=== PATIENT | male | born 1945 | race Caucasian/White ===

== ENCOUNTER 2017-03-29 11:39 | Emergency (ER) | payer OTHER, MEDICAID ==
[~2017-03-29] VITALS: Ht 188 cm; Wt 99.8 kg
[2017-03-29 11:39] VITALS: BP_SYST 176
[~2017-03-29 11:39] MED LIST: ESOM40CA PO; FURO40TA5 PO; LACT10SO66 PO; LYR50 PO; METO-290 PO; MORP20CA19 PO; RIFA550T5 PO; SPIR50TA26 PO; TRAM50TA92 PO
[2017-03-29] MEDS ORDERED: IBUPROFEN 800 MG TABLET PO ONE (12:00)
[2017-03-29] MEDS ORDERED: HYDROcodone/ACETAMIN 10-325 MG TAB PO ONE (12:00)
[2017-03-29 12:12] LABS: BASOPHILS % (AUTO) 0.6 % (0.0-2.0); EOSINOPHILS % (AUTO) 0.7 % (0.0-4.0); HEMATOCRIT 38.1 % (36-54); HEMOGLOBIN 12.6 g/dL (14.0-18.0); LYMPHOCYTES # (AUTO) 1.7 K/uL (1.0-5.5); LYMPHOCYTES % (AUTO) 23.6 % (20.5-51.5); MEAN CORPUSCULAR HEMOGLOBIN 30 pg (27-31); MEAN CORPUSCULAR HGB CONC 33 % (32-36); MEAN CORPUSCULAR VOLUME 90 fL (79.0-98.0); MONOCYTES # (AUTO) 0.4 K/uL (0.0-1.0); MONOCYTES % (AUTO) 5.1 % (1.7-9.3); PLATELET COUNT (AUTO) 182 K/uL (130-430); RED BLOOD CELL COUNT(AUTO) 4.23 MIL/uL (4.2-6.2); RED CELL DISTRIBUTION WIDTH 14.7 % (9.0-15.0); WHITE BLOOD COUNT (AUTO) 7.1 K/uL (4.8-10.8)
[2017-03-29 12:23] LABS: ANION GAP 8 (5-15); CHLORIDE 106 mmol/L (98-107); CREATININE 1.02 mg/dL (0.55-1.30); GLUCOSE 93 mg/dL (70-99); SODIUM SERUM 139 mmol/L (136-145); UREA NITROGEN, BLOOD 25 mg/dL (8-21)
[2017-03-29 12:26] LABS: INR 1.1 (0.80-1.20)
[2017-03-29 12:29] LABS: ALANINE AMINOTRANSFERASE 21 U/L (12-78); ALBUMIN 4.3 g/dL (3.4-4.8); ASPARTATE AMINOTRANSFERASE 17 U/L (10-37); TOTAL BILIRUBIN 0.6 mg/dL (0.0-1.0)
[2017-03-29] MEDS ORDERED: MORPHINE SULFATE 10 MG/ML VIAL IM ONE (12:45)
[2017-03-29] MEDS ORDERED: ONDANSETRON 4 MG ODT TAB PO ONE (12:45)
[2017-03-29 15:05] VITALS: BP_SYST 170
== END 2017-03-29 15:05 | disposition home or self-care (01) ==
LOC: SED 11:39
DX: E11.40 Type 2 diabetes mellitus with diabetic neuropathy, unspecified (principal); R07.9 Chest pain, unspecified; R20.0 Anesthesia of skin; I10 Essential (primary) hypertension; K74.60 Unspecified cirrhosis of liver; K75.9 Inflammatory liver disease, unspecified; Z88.1 Allergy status to other antibiotic agents; Z79.899 Other long term (current) drug therapy
CPT/HCPCS: 36415; 70450; 80053; 85025; 85610; 85730; 93971; 96372; 99285; J2270; Q0162

== ENCOUNTER 2018-05-16 15:54 | Inpatient (IN) | payer OTHER, MEDICAID ==
[~2018-05-16] VITALS: Ht 188 cm; Wt 98.0 kg
[~2018-05-16 15:54] MED LIST changes: +AMOX-426 PO; -ESOM40CA PO; +FURO-149 PO; -FURO40TA5 PO; -LYR50 PO; -METO-290 PO; -MORP20CA19 PO; -RIFA550T5 PO; -SPIR50TA26 PO; -TRAM50TA92 PO
[2018-05-16 16:28] VITALS: BP_SYST 126
[2018-05-16] MEDS ORDERED: NS 1000 ML IV.SOLN IV ONE (18:15)
[2018-05-16 18:20] LABS: ANION GAP 9 (5-15); CALCIUM 8.7 mg/dL (8.4-11.0); CHLORIDE 102 mmol/L (98-107); GLUCOSE 139 mg/dL (70-99); POTASSIUM 3.4 mmol/L (3.5-5.1); SODIUM SERUM 137 mmol/L (136-145); UREA NITROGEN, BLOOD 41 mg/dL (8-21)
[2018-05-16 18:24] LABS: WHITE BLOOD COUNT (AUTO) 4.3 K/uL (4.8-10.8)
[2018-05-16 18:25] LABS: ALANINE AMINOTRANSFERASE 43 U/L (12-78); ALBUMIN 3.5 g/dL (3.4-4.8); ASPARTATE AMINOTRANSFERASE 45 U/L (10-37); BASOPHILS % (AUTO) 0.6 % (0.0-2.0); EOSINOPHILS % (AUTO) 0.2 % (0.0-4.0); HEMATOCRIT 35.5 % (36-54); HEMOGLOBIN 12.1 g/dL (14.0-18.0); LYMPHOCYTES % (AUTO) 22.7 % (20.5-51.5); MEAN CORPUSCULAR HEMOGLOBIN 30 pg (27-31); MEAN CORPUSCULAR HGB CONC 34 % (32-36); MEAN CORPUSCULAR VOLUME 89 fL (79.0-98.0); MONOCYTES % (AUTO) 11.2 % (1.7-9.3); NEUTROPHILS % (AUTO) 65.3 % (40.0-70.0); PLATELET COUNT (AUTO) 105 K/uL (130-430); RED BLOOD CELL COUNT(AUTO) 3.99 MIL/uL (4.2-6.2); RED CELL DISTRIBUTION WIDTH 14.1 % (9.0-15.0); TOTAL BILIRUBIN 0.7 mg/dL (0.0-1.0)
[2018-05-16 18:26] LABS: MONOCYTES # (AUTO) 0.5 K/uL (0.0-1.0); NEUTROPHILS # (AUTO) 2.8 K/uL (1.8-7.7)
[2018-05-16] MEDS ORDERED: CLINDAMYCIN 600 mg/50mL D5W 50 ML IV ONE (18:30)
[2018-05-16] MEDS ORDERED: MORPHINE 4 MG/ML INJ. SYRINGE IVP ONE (18:30)
[2018-05-16 19:10] LABS: PROTHROMBIN TIME 10.3 SECS (9.5-12.5)
[2018-05-16 19:43] LABS: BILIRUBIN,URINE NEGATIVE (NEGATIVE); BLOOD, URINE NEGATIVE (NEGATIVE); CLARITY/URINE SL CLOUDY (CLEAR); COLOR,URINE YELLOW (YELLOW); GLUCOSE,URINE NEGATIVE (NEGATIVE); KETONES,URINE NEGATIVE (NEGATIVE); LEUKOCYTE ESTERASE ,URINE 2+ (NEGATIVE); NITRITE, URINE NEGATIVE (NEGATIVE); PROTEIN URINE NEGATIVE (NEGATIVE); UROBILINOGEN,URINE 0.2 (0.2-1.0)
[2018-05-16 19:55] LABS: BACTERIA,URINE MANY /HPF (None Seen); RBC,URINE 0-3 /HPF (0-3); WBC,URINE 80-100 /HPF (0-3)
[2018-05-16 19:56] LABS: MUCUS,URINE None Seen /LPF (None Seen)
[2018-05-16] MEDS ORDERED: VANCOMYCIN HCL 1,000 MG in NS 250 ML IV ONE (20:00)
[2018-05-16] MEDS ORDERED: VANCOMYCIN HCL 1000 MG/VIAL IV ONE (20:15)
[2018-05-16] MEDS ORDERED: ACETAMINOPHEN 325 MG TABLET PO PRN (21:00)
[2018-05-16] MEDS ORDERED: ONDANSETRON HCL 4 MG/2 ML VIAL IVP PRN (21:00)
[2018-05-16] MEDS ORDERED: METOCLOPRAMIDE HCL 10 MG/2 ML VIAL IVP PRN (21:00)
[2018-05-16] MEDS ORDERED: MORPHINE 4 MG/ML INJ. SYRINGE IVP PRN (21:00)
[2018-05-16] MEDS ORDERED: DEXTROSE 50% JECT 50 ML DISP.SYRIN IVP PRN (21:00)
[2018-05-16 21:01] VITALS: BP_SYST 158
[2018-05-16] MEDS: MORPHINE 4 MG/ML INJ. SYRINGE IVP PRN (22:33)
[2018-05-16] MEDS: NACL 0.9% 1,000 ML IV SCH (22:37)
[2018-05-16] MEDS: INSULIN REGULAR, HUMAN 100 UNITS/ML, 10 ML VIAL (novoLIN R) SUBCUT PRN (22:55)
[2018-05-17] MEDS: MORPHINE 4 MG/ML INJ. SYRINGE IVP PRN ×5 (02:27→22:32)
[2018-05-17 08:00] VITALS: BP_SYST 147
[2018-05-17 08:11] LABS: BASOPHILS % (AUTO) 0.4 % (0.0-2.0); EOSINOPHILS % (AUTO) 0.7 % (0.0-4.0); HEMATOCRIT 36.7 % (36-54); HEMOGLOBIN 12.3 g/dL (14.0-18.0); LYMPHOCYTES # (AUTO) 0.8 K/uL (1.0-5.5); LYMPHOCYTES % (AUTO) 24.9 % (20.5-51.5); MEAN CORPUSCULAR HEMOGLOBIN 30 pg (27-31); MEAN CORPUSCULAR HGB CONC 34 % (32-36); MEAN CORPUSCULAR VOLUME 90 fL (79.0-98.0); MONOCYTES % (AUTO) 11.4 % (1.7-9.3); NEUTROPHILS # (AUTO) 2.1 K/uL (1.8-7.7); NEUTROPHILS % (AUTO) 62.6 % (40.0-70.0); PLATELET COUNT (AUTO) 110 K/uL (130-430); RED BLOOD CELL COUNT(AUTO) 4.09 MIL/uL (4.2-6.2); WHITE BLOOD COUNT (AUTO) 3.3 K/uL (4.8-10.8)
[2018-05-17 08:12] LABS: MONOCYTES # (AUTO) 0.4 K/uL (0.0-1.0)
[2018-05-17 08:34] LABS: ALANINE AMINOTRANSFERASE 40 U/L (12-78); ALBUMIN 3.4 g/dL (3.4-4.8); ANION GAP 7 (5-15); ASPARTATE AMINOTRANSFERASE 37 U/L (10-37); CALCIUM 8.5 mg/dL (8.4-11.0); CHLORIDE 106 mmol/L (98-107); CREATININE 1.41 mg/dL (0.55-1.30); GLUCOSE 120 mg/dL (70-99); POTASSIUM 3.3 mmol/L (3.5-5.1); SODIUM SERUM 138 mmol/L (136-145); UREA NITROGEN, BLOOD 34 mg/dL (8-21)
[2018-05-17] MEDS: LEVOFLOXACIN 500 MG/D5W 100 ML IV SCH (09:53)
[2018-05-17] MEDS: VANCOMYCIN HCL 1,750 MG in NS 500 ML IV SCH (11:02)
[2018-05-17] MEDS: INSULIN REGULAR, HUMAN 100 UNITS/ML, 10 ML VIAL (novoLIN R) SUBCUT PRN ×3 (12:09→23:37)
[2018-05-17 12:23] VITALS: BP_SYST 123
[2018-05-17 16:22] VITALS: BP_SYST 139
[2018-05-17] MEDS: NACL 0.9% 1,000 ML IV SCH (18:35)
[2018-05-17 20:00] VITALS: BP_SYST 140
[2018-05-18 00:09] VITALS: BP_SYST 134
[2018-05-18] MEDS: MORPHINE 4 MG/ML INJ. SYRINGE IVP PRN ×3 (04:37→21:08)
[2018-05-18] MEDS: NACL 0.9% 1,000 ML IV SCH (06:20)
[2018-05-18 07:44] LABS: ALANINE AMINOTRANSFERASE 38 U/L (12-78); ALBUMIN 3.3 g/dL (3.4-4.8); ANION GAP 8 (5-15); ASPARTATE AMINOTRANSFERASE 37 U/L (10-37); CALCIUM 8.6 mg/dL (8.4-11.0); CHLORIDE 107 mmol/L (98-107); CREATININE 1.17 mg/dL (0.55-1.30); GLUCOSE 127 mg/dL (70-99); POTASSIUM 3.9 mmol/L (3.5-5.1); SODIUM SERUM 138 mmol/L (136-145); UREA NITROGEN, BLOOD 21 mg/dL (8-21)
[2018-05-18 07:52] VITALS: BP_SYST 134
[2018-05-18] MEDS: LEVOFLOXACIN 500 MG/D5W 100 ML IV SCH (08:24)
[2018-05-18] MEDS: VANCOMYCIN HCL 1,750 MG in NS 500 ML IV SCH (09:47)
[2018-05-18 11:44] VITALS: BP_SYST 152
[2018-05-18 15:13] VITALS: BP_SYST 133
[2018-05-18 19:47] VITALS: BP_SYST 130
[2018-05-19 00:04] VITALS: BP_SYST 158
[2018-05-19] MEDS: MORPHINE 4 MG/ML INJ. SYRINGE IVP PRN (05:48)
[2018-05-19 07:44] VITALS: BP_SYST 121
[2018-05-19] MEDS: LEVOFLOXACIN 500 MG/D5W 100 ML IV SCH (08:10)
[2018-05-19] MEDS: VANCOMYCIN HCL 1,750 MG in NS 500 ML IV SCH (10:18)
[2018-05-19] MEDS ORDERED: LEVO750T45 PO (10:26)
[2018-05-19 12:17] VITALS: BP_SYST 141
[2018-05-19 14:00] VITALS: BP_SYST 119
== END 2018-05-19 14:50 | disposition home or self-care (01) | DRG 683 ==
LOC: SED 15:54 → SMU 20:02
PROVIDERS: ADMIT Internal Medicine Hospice and Palliative Medicine; ATTEND Internal Medicine Hospice and Palliative Medicine
DX: N17.0 Acute kidney failure with tubular necrosis (principal); N39.0 Urinary tract infection, site not specified; L03.115 Cellulitis of right lower limb; E11.628 Type 2 diabetes mellitus with other skin complications; E11.9 Type 2 diabetes mellitus without complications; K74.60 Unspecified cirrhosis of liver; B19.20 Unspecified viral hepatitis C without hepatic coma; D64.9 Anemia, unspecified; G89.29 Other chronic pain; I10 Essential (primary) hypertension; Z88.1 Allergy status to other antibiotic agents; Z85.89 Personal history of malignant neoplasm of other organs and systems
CPT/HCPCS: 36415; 71045; 80053; 80202-TC; 81000-TC; 82962; 83605; 84484; 85025; 85610-TC; 85730-TC; 87040-TC; 87086; 87186-TC; 90656; 93005; 93971; 96361; 96365; 96366; 96367; 96375; 99285; J1815; J1956; J2270; J3370; J3490; J7030; J7040